=== PATIENT | female | born 1950 | race Asian ===

== ENCOUNTER 2017-03-16 12:42 | Emergency (ER) | payer OTHER ==
[~2017-03-16] VITALS: Ht 162.6 cm; Wt 82.6 kg
[~2017-03-16 12:42] MED LIST: CITALOPRAM10 MG PO; DULO30CA OR; GRALISE600 MG PO; LISI10TA11 PO; PANT40TA PO; XANAX XR1 MG PO
[2017-03-16 14:45] VITALS: BP 128/78; TEMP 98.2
== END 2017-03-16 14:47 | disposition home or self-care (01) ==
LOC: ED 12:42
DX: S09.8XXA Other specified injuries of head, initial encounter (principal); S69.81XA Other specified injuries of right wrist, hand and finger(s), initial encounter; W01.198A Fall on same level from slipping, tripping and stumbling with subsequent striking against other object, initial encounter; Y92.89 Other specified places as the place of occurrence of the external cause
CPT/HCPCS: 99283

== ENCOUNTER 2018-02-25 10:49 | Outpatient (CLI) | payer OTHER | END 2018-02-25 21:43 | disposition home or self-care (01) | LOC: RAD 10:49 | DX: M25.512 Pain in left shoulder (principal) ==

== ENCOUNTER 2018-04-06 10:16 | Outpatient (CLI) | payer OTHER ==
[2018-04-06 10:46] LABS: POTASSIUM 4.2 mmol/L (3.6-5.2)
== END 2018-04-06 19:08 | disposition home or self-care (01) ==
LOC: LABW 10:16
DX: N18.2 Chronic kidney disease, stage 2 (mild) (principal)
CPT/HCPCS: 36415; 80048; 81000; 82043; 82570

== ENCOUNTER 2018-04-14 11:57 | Day surgery (SDC) | payer OTHER ==
[2018-04-14 12:56] LABS: POTASSIUM 3.6 mmol/L (3.6-5.2)
[2018-04-14 12:58] LABS: PLATELET COUNT 307 K/uL (152-353)
== END 2018-04-14 15:40 | disposition home or self-care (01) ==
LOC: OR 11:57
PROVIDERS: Internal Medicine Gastroenterology
PROC: 0DB68ZZ Excision of Stomach, Via Natural or Artificial Opening Endoscopic (ICD-10-PCS; principal; 2018-04-14)
PROC: 0DB88ZZ Excision of Small Intestine, Via Natural or Artificial Opening Endoscopic (ICD-10-PCS; 2018-04-14)
DX: K29.50 Unspecified chronic gastritis without bleeding (principal); K21.0 Gastro-esophageal reflux disease with esophagitis; R10.11 Right upper quadrant pain; R11.0 Nausea; R10.13 Epigastric pain
CPT/HCPCS: 80053; 85027; J2001; J2250; J2704

== ENCOUNTER 2018-04-28 12:00 | Day surgery (SDC) | payer OTHER | END 2018-04-28 17:36 | disposition home or self-care (01) | LOC: OR 12:00 | PROC: 0DJD8ZZ Inspection of Lower Intestinal Tract, Via Natural or Artificial Opening Endoscopic (ICD-10-PCS; principal; 2018-04-28) | DX: K57.30 Diverticulosis of large intestine without perforation or abscess without bleeding (principal); K64.8 Other hemorrhoids; R19.4 Change in bowel habit; R10.84 Generalized abdominal pain; Z80.0 Family history of malignant neoplasm of digestive organs; Z12.11 Encounter for screening for malignant neoplasm of colon | CPT/HCPCS: J2250; J2704; J3490 ==

== ENCOUNTER 2018-06-10 09:53 | Outpatient (CLI) | payer OTHER ==
[2018-06-10 11:55] LABS: POTASSIUM 4.3 mmol/L (3.6-5.2)
== END 2018-06-10 19:18 | disposition home or self-care (01) ==
LOC: LABW 09:53
PROVIDERS: Specialist
DX: N18.3 Chronic kidney disease, stage 3 (moderate) (principal); I10 Essential (primary) hypertension; E11.65 Type 2 diabetes mellitus with hyperglycemia
CPT/HCPCS: 36415; 80069; 82575; 84156

== ENCOUNTER 2021-10-10 17:23 | Emergency (ER) | payer OTHER ==
[~2021-10-10] VITALS: Ht 162.6 cm; Wt 88.5 kg
[2021-10-10 21:10] VITALS: BP 164/71; TEMP 98
== END 2021-10-10 21:10 | disposition home or self-care (01) ==
LOC: ED 17:23
DX: S69.81XA Other specified injuries of right wrist, hand and finger(s), initial encounter (principal); X58.XXXA Exposure to other specified factors, initial encounter; Y92.89 Other specified places as the place of occurrence of the external cause
CPT/HCPCS: 99283